=== PATIENT | female | born 1990 | race African-American/Black ===

== ENCOUNTER 2018-05-29 13:09 | Inpatient (IN) | payer OTHER ==
[2018-05-29] VITALS (25 sets, daily range): BP systolic 107–138; BP diastolic 56–76; PULSE 64–85; TEMP 97.4–98.8
[~2018-05-29] VITALS: Ht 170.2 cm; Wt 77.7 kg
--- NOTE | 2018-05-29 13:15 | NUR ---
Pt here with c/o contractions. 38.3 weeks gestation, G4L0. Pt to [facility], explained. at bedside. VSS, afebrile. SVE: 3-4/75/-2. Pt denies any vaginal bleeding or leaking of fluid. Pt states baby is active and contractions every 10 minutes that are getting stronger. Assessment complete. GBS negative. Will monitor for one hour and recheck cervix.
[2018-05-29] MEDS ORDERED: PRENATAL PO (13:26)
--- NOTE | 2018-05-29 16:30 | NUR ---
Dr. Dhillon at bedside, reviews FHR tracing. SVE /-2 with bloody show noted. AROM with clear fluid noted.
[2018-05-29 17:27] LABS: BASO % 0.5 % (0.0-2.0); EOS # 0.1 (0.0-0.7); EOS % 0.7 % (0-4.0); GRAN # 3.8 (1.4-6.5); HEMATOCRIT 37.1 % (37.0-47.0); HEMOGLOBIN 11.8 g/dl (12.5-16.0); LYMPH # 2.3 (1.2-3.4); LYMPH % 30.7 % (20.0-51.0); MEAN CELL VOLUME 79 fl (80.0-100.0); MEAN CORPUSCULAR HEMOGLOBIN 25 pg (27.0-31.0); MEAN CORPUSCULAR HGB CONC 32 g/dl (33.0-37.0); MEAN PLATELET VOLUME 9.3 fl (7.4-10.4); MONO # 1.1 (0.1-0.6); MONO % 14.6 % (1.7-9.3); PLATELET COUNT 307 K/mm3 (130-400); RED BLOOD COUNT 4.67 M/mm3 (4.10-5.30); REDCELL DISTRIBUTION WIDTH-CV 16.2 % (11.5-14.5)
--- NOTE | 2018-05-29 17:41 | NUR ---
1728 BRIANNA Florentino to room to place epidural. Patient sits upright on the edge of the bed. EFM difficult to monitor in this position and is intermittenly tracing. Test dose is administered at 1741 by BRIANNA Florentino - see anesthesia for details of procedure. 1745 Patient wedged to left side.
--- NOTE | 2018-05-29 19:00 | NUR ---
181- Bedside report from ARVIN Frederick. 183- Ballard catheter inserted. SVE /-2. Patient tolerated well. Patient repositioned LL. Pitocin started per protocol at 2 mU. 184- Recurrent early decelerations noted. Patient repositioned WR. 190- Subtle recurrent early decelerations continue to be noted on EFM. Minimal variability noted. Patient repositioned. Will continue to monitor closely. Patient resting in bed at this time.
--- NOTE | 2018-05-29 19:45 | NUR ---
1900- Recurrent early decels continue to be noted on FHT strip. 1904- Patient repositioned LL. 1911- Late decel with FHR dropping into the 60-70's for 100 seconds. Patient repositioned to RL. IVF bolus initiated. O2 on at 10/LPM. Pitocin off. FHR recovered back to baseline of 115/bpm. 1924- See Physician Notification. 1929- Deceleration noted. FHT down into the 90's for 60 seconds. FHR recovered back to baseline of 115/bpm after 3 minutes. 1939- See Physician Notification. Pitocin restarted at 2 mU per . Will re-evaluate in 1 hour. MD will intermittently monitor FHT strip from home.
--- NOTE | 2018-05-29 20:45 | NUR ---
1944- Decelerations continue recurrently. Patient remains in RL position with O2 on, and IVF bolus continues. 2014- SVE 8/100/-2. Bloody show noted. Patient repositioned to sitting upright. updated. 2024- at bedside. SVE 8/100/0. Good scalp stimulation noted with SVE. Plan of care and options discussed with patient by MD. Will recheck in 30 minutes.
--- NOTE | 2018-05-29 21:15 | NUR ---
2029- remains on unit. 2104- at bedside. SVE Complete/+1. Deceleration noted dropping into the 60's for 5 minutes. Ballard catheter removed. Room set up for delivery. 2111- Patient begins pushing with contractions. 2113- of viable baby girl. Cord noted to be close to face. Cord clamped and cut. care assumed by ARVIN Aden. Cord gasses drawn by . Cord blood obtained. RT contacted. 2121- Spontaneous delivery of placenta. Fundus massaged to firm by . 2nd degree perineal lacertion with mediolateral episiotomy repaired by . Pericare completed. Ice pack applied. 2144- Benadryl given for complaints of itching. See eMAR.
[2018-05-30] VITALS: BP 123/58; PULSE 80; TEMP 98.4
--- NOTE | 2018-05-30 02:30 | NUR ---
Report given to ARVIN Aden.
[2018-05-30 04:05] VITALS: BP 90/50; PULSE 86; TEMP 98.4
[2018-05-30 06:55] LABS: BASO % 0.3 % (0.0-2.0); EOS % 0.4 % (0-4.0); GRAN # 6.7 (1.4-6.5); GRAN % 69.8 % (42.2-75.2); HEMOGLOBIN 10.6 g/dl (12.5-16.0); LYMPH # 1.5 (1.2-3.4); LYMPH % 15.1 % (20.0-51.0); MEAN CELL VOLUME 80 fl (80.0-100.0); MEAN CORPUSCULAR HEMOGLOBIN 25 pg (27.0-31.0); MEAN CORPUSCULAR HGB CONC 32 g/dl (33.0-37.0); MEAN PLATELET VOLUME 9.4 fl (7.4-10.4); MONO # 1.3 (0.1-0.6); MONO % 13.4 % (1.7-9.3); PLATELET COUNT 289 K/mm3 (130-400); RED BLOOD COUNT 4.21 M/mm3 (4.10-5.30); REDCELL DISTRIBUTION WIDTH-CV 16.1 % (11.5-14.5)
[2018-05-30 06:56] LABS: HEMATOCRIT 33.5 % (37.0-47.0)
[2018-05-30 07:15] VITALS: BP 96/51; PULSE 82; TEMP 98.4
[2018-05-30] MEDS ORDERED: MOTRIN 800800 MG/TAB PO (08:24)
[2018-05-30] MEDS ORDERED: PERCOCET 325 MG1 TA2 PO (08:24)
[2018-05-30 11:37] VITALS: BP 104/63; PULSE 85; TEMP 98.1
[2018-05-30 15:59] VITALS: BP 140/54; PULSE 71; TEMP 98.1
[2018-05-30 18:37] VITALS: BP 96/63; PULSE 73; TEMP 97.8
[2018-05-31 08:15] VITALS: BP 102/66; PULSE 83; TEMP 97.9
[2018-05-31] MEDS ORDERED: BREASTPUMP MC (08:54)
[2018-05-31 12:23] VITALS: BP 111/62; PULSE 66; TEMP 98.2
--- NOTE | 2018-05-31 16:31 | NUR ---
Patient discharge instructions reviewed with her and . Script for percocet, motrin and breastpump given and explained. Patient and verbalize understanding. Patient, and infant escorted out to vehicle.
== END 2018-05-31 16:30 | disposition home or self-care (01) | DRG 807 ==
LOC: LDRO 13:09 → LDR 14:35 → LDRO 16:30 → OB 16:31 → LDR 16:31 → OB 23:00
PROVIDERS: Obstetrics & Gynecology; ADMIT Obstetrics & Gynecology
PROC: 10E0XZZ Delivery of Products of Conception, External Approach (ICD-10-PCS; principal; 2018-05-29)
PROC: 0W8NXZZ Division of Female Perineum, External Approach (ICD-10-PCS; 2018-05-29)
DX: O76 Abnormality in fetal heart rate and rhythm complicating labor and delivery (principal); Z37.0 Single live birth; Z3A.38 38 weeks gestation of pregnancy; O99.02 Anemia complicating childbirth
CPT/HCPCS: J1200; J2590; J7120